=== PATIENT | male | born 1960 | race Caucasian/White ===

== ENCOUNTER 2019-11-18 07:11 | Day surgery (SDC) | payer SELFPAY ==
[2019-11-13 15:01] VITALS: BMI 37.2
[~2019-11-18 07:11] MED LIST: ACETAMINOPHEN TAB 500 MG TAB PO ONE; DEXAMETHASONE SOD PHOSPHATE 10 MG/ML 1 ML VIAL IV ONE; HEPARIN SODIUM,PORCINE 5,000 UNIT/ML 1 ML VIAL SQ ONE; LIDOCAINE 1% (10MG/ML) FOR IV START INTRADERMA PRN; MIDAZOLAM 2 MG/2 ML VIAL IV PRN; MORPHINE SULFATE 4 MG/ML SYRINGE IV PRN; ONDANSETRON 4 MG/2 ML VIAL IVP ONE
[2019-11-18] MEDS ORDERED: ONDANSETRON 4 MG/2 ML VIAL ONE (08:04)
[2019-11-18] MEDS ORDERED: ACETAMINOPHEN TAB 500 MG TAB ONE (08:04)
[2019-11-18] MEDS ORDERED: HEPARIN SODIUM,PORCINE 5,000 UNIT/ML 1 ML VIAL ONE (08:04)
[2019-11-18] MEDS: LACTATED RINGERS 1,000 ML IV SCH ×2 (08:23→15:45)
[2019-11-18] MEDS ORDERED: MIDAZOLAM 2 MG/2 ML VIAL IV ONE (08:24)
[2019-11-18] MEDS ORDERED: fentaNYL (PF) 50 MCG/ML 2 ML AMP IV ONE (08:24)
--- NOTE | 2019-11-18 09:18 | P.GSHP ---
History of Present Illness H&P Date: 11/18/19 Chief Complaint: Umbilical hernia This a 59-year-old male with incarcerated hernia. Patient presents today for laparoscopic robotic-assisted repair. Past Medical History Additional Past Medical History / Comment(s): umbilical hernia, hx of irregular heart rate, states "misses a beat" History of Any Multi-Drug Resistant Organisms: MRSA Date of last positivie culture/infection: 1993 MDRO Source:: left knee Past Surgical History: Orthopedic Surgery, Tonsillectomy Additional Past Surgical History / Comment(s): left knee arthroscopy Past Anesthesia/Blood Transfusion Reactions: No Reported Reaction Smoking Status: Current some day smoker - Past Family History Mother Family Medical History: No Reported History Medications and Allergies Home Medications Medication Instructions Recorded Confirmed Type Aspirin [Adult Low Dose Aspirin EC] 81 mg PO DAILY 11/13/19 11/18/19 History Multivitamins, Thera [Multivitamin 1 tab PO DAILY 11/13/19 11/18/19 History (formulary)] Nicotine 21Mg/24Hr Patch [Habitrol] 1 each TRANSDERM DAILY PRN 11/13/19 11/18/19 History Allergies Allergy/AdvReac Type Severity Reaction Status Date / Time No Known Allergies Allergy Verified 11/18/19 07:45 Surgical - Exam Vital Signs Temp Pulse Resp BP Pulse Ox 97.7 F 60 16 136/84 96 11/18/19 07:44 11/18/19 07:44 11/18/19 07:44 11/18/19 07:44 11/18/19 07:44 - General well developed, well nourished, no distress - Eyes PERRL - ENT normal pinna - Neck no masses - Respiratory normal expansion - Cardiovascular Rhythm: regular - Abdomen Abdomen: soft, non tender Hernia: umbilical (Incarcerated umbilical hernia) Assessment and Plan Assessment: Incarcerated umbilical hernia. We'll perform laparoscopic robotic-assisted repair.
[2019-11-18] MEDS ORDERED: DEXAMETHASONE SOD PHOSPHATE 4 MG/ML 1 ML VIAL ONE (09:32)
[2019-11-18] MEDS ORDERED: fentaNYL (PF) 50 MCG/ML 2 ML AMP ONE (09:32)
[2019-11-18] MEDS ORDERED: PROPOFOL 10 MG/ML 20 ML VIAL IV ONE (09:32)
[2019-11-18] MEDS ORDERED: MIDAZOLAM 2 MG/2 ML VIAL ONE (09:32)
[2019-11-18] MEDS ORDERED: ROPIVACAINE 5 MG/ML 30 ML VIAL ONE (09:32)
[2019-11-18] MEDS ORDERED: ROCURONIUM BROMIDE 10 MG/ML 5 ML VIAL IV ONE (09:32)
[2019-11-18] MEDS ORDERED: NEOSTIGMINE 1 MG/ML 10 ML VIAL ONE (09:32)
[2019-11-18] MEDS ORDERED: GLYCOPYRROLATE 0.2 MG/ML 2 ML VIAL ONE (09:32)
[2019-11-18] MEDS ORDERED: SUCCINYLCHOLINE CHLORIDE 100 MG/5 ML SYR IV ONE (09:32)
[2019-11-18] MEDS ORDERED: LIDOCAINE 1% INJ 10MG/ML (20 ML MDV) ONE (09:32)
[2019-11-18] MEDS ORDERED: ePHEDrine SULFATE/0.9% NACL/PF 50 MG/5 ML SYRINGE IV ONE (09:32)
[2019-11-18] MEDS ORDERED: WATER FOR INJECTION, STERILE 10 ML VIAL IV ONE (09:32)
[2019-11-18] MEDS ORDERED: BUPIVACAINE (PF) 0.25% 30 ML VIAL SQ ONE (10:12)
[2019-11-18 10:51] VITALS: TEMP 98.2
--- NOTE | 2019-11-18 10:51 | P.OP ---
Date of Procedure: 11/18/19 Preoperative Diagnosis: Incarcerated umbilical hernia Postoperative Diagnosis: Incarcerated umbilical hernia Procedure(s) Performed: Laparoscopic robotic of repair of incarcerated umbilical hernia hernia Partial omentectomy Anesthesia: KIM Surgeon: Jaren Bosch Estimated Blood Loss (ml): 5 Pathology: other (Omentum) Condition: stable Disposition: PACU Description of Procedure: The patient was placed on the operating table in the supine position. He received general anesthesia. His abdomen was prepped and draped usual fashion. Using a 5 mm optical trocar under direct visualization the peritoneal cavity was entered in the left upper quadrant. The abdomen was then insufflated. The laparoscope was placed back into the perineal cavity. Next a 8 mm robotic trocar was placed in the left lower quadrant and a 12 mm robotic trocar was placed in the left lateral position. The original 5 mm trocar was exchanged for a 8 mm robotic trocar. The patient's placed in the left side up position. And the patient was undocked the robot. The umbilical hernia was visualized. The partial omentum was dissected free and then sent to pathology. Using hook cautery the peritoneum over the umbilical hernia was excised. The fascial opening was repaired using 0V LOC suture. Next a piece of 11 cm round ventral light ST mesh was placed into the. Cavity and secured with 2 OV lock suture. The patient was undocked the robot. The needles were retrieved. The fascia of the 12 mm trocar site was closed with 0 Ethibond suture. Skin was closed interrupted 3-0 Monocryl suture. Dermabond dressings was applied. Patient top procedure well and was sent to recovery room stable condition. Mild
[2019-11-18] MEDS ORDERED: ONDANSETRON 4 MG/2 ML VIAL IVP ONE (10:59)
[2019-11-18] MEDS ORDERED: HYDROmorphone 1 MG/ML 1 ML SYRINGE IVP ONE ×2 (11:09→11:14)
[2019-11-18] MEDS ORDERED: LACTATED RINGERS 1,000 ML IV ONE (11:19)
[2019-11-18 12:07] VITALS: RESP 20
[2019-11-18 13:03] VITALS: BP 110/67; PULSE 62
[2019-11-18] MEDS ORDERED: HYDROcodone/APAP 5-325MG 1 EACH TAB ONE (14:24)
--- NOTE | 2019-11-18 16:18 | P.ANPRN ---
Procedure Note - Anesthesia - Nerve Block Performed Bilateral Rectus Abdominis Time Out Performed: Yes (08:24) Date of Procedure: 11/18/19 Procedure Start Time: Procedure Stop Time: :39 Location of Patient: PreOp Indication: Acute Post-Operative Pain, Requested by Surgeon (Dr Bosch) Sedation Type: Sedate with meaningful contact maintained Preparation: Sterile Prep Position: Supine Catheter: None Needle Types: Pajunk Needle Gauge: 21 Ultrasound used to visualize needle placement: Yes Ultrasound used to observe medication spread: Yes Injectate: 0.5% Ropivacaine (see comment for volume) (15cc each side. Decadron 2mg each side) Blood Aspirated: No Pain Paresthesia on Injection Noted: No Resistance on Injection: Normal Image Stored and Saved: Yes Events: Uneventful and Well Tolerated
== END 2019-11-18 16:58 | disposition home or self-care (01) ==
LOC: OR 07:11
PROVIDERS: ATTEND Surgery
DX: K42.0 Umbilical hernia with obstruction, without gangrene (principal); F17.200 Nicotine dependence, unspecified, uncomplicated; Z79.82 Long term (current) use of aspirin; Z87.19 Personal history of other diseases of the digestive system; Z86.14 Personal history of Methicillin resistant Staphylococcus aureus infection; Z90.49 Acquired absence of other specified parts of digestive tract; Z98.890 Other specified postprocedural states
CPT/HCPCS: 49653; 64488; J2250; J2270; J1644; J1100; J0690; J2405; J3010; J1170; 88305